=== PATIENT | male | born 1975 | race Caucasian/White ===

== ENCOUNTER 2018-09-08 11:12 | Outpatient (CLI) | payer BC ==
--- NOTE | 2018-09-08 15:02 | ULT ---
BILATERAL LOWER EXTREMITY VENOUS DOPPLER: HISTORY: Lower extremity edema. COMPARISON: None. TECHNIQUE: Real-time, mancilla-scale, color Doppler, and spectral analysis of the bilateral lower extremity venous s ystem is performed. The common femoral, femoral, and proximal portions of the greater saphenous and deep femoral veins, as well as the popliteal and posterior tibial veins, were interrogated. FINDINGS: There is normal flow, augmentation, and compression. IMPRESSION: No deep venous thrombosis. POS: [facility]
== END 2018-09-08 11:13 | disposition home or self-care (01) ==
LOC: ULT 11:12
PROVIDERS: ATTEND Pediatrics Sports Medicine
DX: M79.604 Pain in right leg (principal); M79.89 Other specified soft tissue disorders
CPT/HCPCS: 93970

== ENCOUNTER 2018-10-10 15:41 | Outpatient (CLI) | payer BC ==
--- NOTE | 2018-10-10 17:14 | MRI ---
RIGHT KNEE MRI WITHOUT IV CONCTRAST 10/10/18 HISTORY: Positive Tavia test, lateral joint line tenderness. Effusion right knee, right knee pain. Multiplanar, multisequence MRI examination of the right knee is performed. Minimal heterogeneous incr eased signal in the patellar cartilage with some slight fibrillation evidence for mild chondromalacia patella. Medial and lateral menisci appear intact. The anterior and posterior cruciate ligaments jonn ear intact. Collateral ligament complexes appear intact. Quadriceps and patellar tendons are unremark able. Extensor mechanism appears unremarkable. IMPRESSION: Evidence for chondromalacia patella. No evidence for other significant acute internal derangement. POS: [facility]
== END 2018-10-10 15:42 | disposition home or self-care (01) ==
LOC: SCSMRI 15:41
DX: M25.461 Effusion, right knee (principal); M25.561 Pain in right knee; R29.898 Other symptoms and signs involving the musculoskeletal system; M22.41 Chondromalacia patellae, right knee